=== PATIENT | female | born 1970 | race African-American/Black ===

== ENCOUNTER 2019-04-01 19:48 | Emergency (ER) | payer OTHER, MEDICAID ==
[~2019-04-01] VITALS: Ht 157.5 cm; Wt 95.3 kg
[2019-04-01 21:53] LABS: BILIRUBIN,URINE NEGATIVE (NEG); CLARITY,URINE CLEAR; COLOR,URINE YELLOW; NITRITE,URINE NEGATIVE (NEG); PROTEIN,URINE NEGATIVE (NEG-TRACE)
[2019-04-01 21:54] LABS: BASO % 0 % (0-3); EOS # 0.2 x10^3/uL (0.0-0.7); EOS % 2 % (0-3); HEMATOCRIT 36.3 % (36.0-47.0); LYMPH # 3.3 x10^3/uL (1.0-4.8); LYMPH % 51 % (24-48); MEAN CORPUSCULAR HEMOGLOBIN 29 pg (25-35); MEAN CORPUSCULAR HGB CONC 33 g/dL (31-37); MEAN CORPUSCULAR VOLUME 86 fL (79-100); MONO # 0.5 x10^3/uL (0.0-1.1); MONO % 7 % (0-9); NEUT # 2.6 x10^3/uL (1.8-7.7); NEUT % 40 % (31-73); PLATELET COUNT 275 x10^3/uL (140-400); RED BLOOD COUNT 4.21 x10^6/uL (3.50-5.40); RED CELL DISTRIBUTION WIDTH 15.7 % (11.5-14.5); WHITE BLOOD COUNT 6.5 x10^3/uL (4.0-11.0)
[2019-04-01 22:01] LABS: CALCIUM 9.2 mg/dL (8.5-10.1); CREATININE 0.8 mg/dL (0.6-1.0); GFR 92.6; POTASSIUM 3.3 mmol/L (3.5-5.1)
[2019-04-01 22:02] LABS: BACTERIA,URINE MANY /HPF (0-FEW); RBC,URINE 0 /HPF (0-2); SQUAMOUS EPITHELIAL CELL,UR MANY /LPF
[2019-04-01 22:06] LABS: ALBUMIN 3.5 g/dL (3.4-5.0); ALBUMIN/GLOBULIN RATIO 0.8 (1.0-1.7); TOTAL BILIRUBIN 0.5 mg/dL (0.2-1.0); TOTAL PROTEIN 7.8 g/dL (6.4-8.2)
--- NOTE | 2019-04-01 23:12 | PHYS DOC ---
Past Medical History Past Medical History: Other Additional Past Medical Histor: HEAD TUMOR AT AGE 7, CHEMO AND RADIATION.LEFT EYE BLINDNESS Past Surgical History: Other Additional Past Surgical Histo: HEAD SHUNT Alcohol Use: None Drug Use: None Adult General Chief Complaint Chief Complaint: FLANK PAIN HPI HPI 49-year-old female presents to the emergency department with complaints of right flank pain, right upper quadrant pain. Patient states is been ongoing times one month. She denies any fever however describes nausea at times. He makes her symptoms worse, nothing makes her symptoms better. She states she is not fall with her primary care physician for his pain nor is she taking any [id number] medications. Review of Systems Review of Systems Constitutional: Denies fever or chills [] Eyes: Denies change in visual acuity, redness, or eye pain [] HENT: Denies nasal congestion or sore throat [] Respiratory: Denies cough or shortness of breath [] Cardiovascular: No additional information not addressed in HPI [] GI: Denies abdominal pain, + nausea, no vomiting, bloody stools or diarrhea [] : Denies dysuria or hematuria [] Musculoskeletal: RUQ/R flank pain Integument: Denies rash or skin lesions [] Neurologic: Denies headache, focal weakness or sensory changes [] Endocrine: Denies polyuria or polydipsia [] All other systems were reviewed and found to be within normal limits, except as documented in this note. Current Medications Current Medications Current Medications Medications (Trade) Dose Ordered Sig/Aneta Start Time Stop Time Status Last Admin Dose Admin Ketorolac Tromethamine (Toradol Im) 60 mg 1X ONCE 04/01/19 23:15 04/01/19 23:16 DC 04/01/19 23:47 60 MG Allergies Allergies Allergies Coded Allergies Type Severity Reaction Last Updated Verified No Known Drug Allergies 04/23/15 No Physical Exam Physical Exam Constitutional: Well developed, well nourished, no acute distress, non-toxic appearance. [] HENT: Normocephalic, atraumatic, bilateral external ears normal, oropharynx moist, no oral exudates, nose normal. [] Eyes: PERRLA, EOMI, conjunctiva normal, no discharge. [] Cardiovascular:Heart rate regular rhythm, no murmur [] Lungs & Thorax: Bilateral breath sounds clear to auscultation [] Abdomen: Bowel sounds normal, soft, RUQ pain, no masses, no pulsatile masses. [] Skin: Warm, dry, no erythema, no rash. [] Back: right CVA tenderness Extremities: No tenderness, no edema. [] Neurologic: Alert and oriented X 3, no focal deficits noted. [] Psychologic: Affect normal, judgement normal, mood normal. [] Current Patient Data Vital Signs Vital Signs Date Time Temp Pulse Resp B/P (MAP) Pulse Ox O2 Delivery O2 Flow Rate FiO2 04/01/19 21:25 97.9 78 20 111/67 (82) 96 Room Air 97.9 Lab Values Laboratory Tests Test 04/01/19 21:40 04/01/19 21:47 White Blood Count 6.5 x10^3/uL (4.0-11.0) Red Blood Count 4.21 x10^6/uL (3.50-5.40) Hemoglobin 12.0 g/dL (12.0-15.5) Hematocrit 36.3 % (36.0-47.0) Mean Corpuscular Volume 86 fL (79-100) Mean Corpuscular Hemoglobin 29 pg (25-35) Mean Corpuscular Hemoglobin Concent 33 g/dL (31-37) Red Cell Distribution Width 15.7 % (11.5-14.5) H Platelet Count 275 x10^3/uL (140-400) Neutrophils (%) (Auto) 40 % (31-73) Lymphocytes (%) (Auto) 51 % (24-48) H Monocytes (%) (Auto) 7 % (0-9) Eosinophils (%) (Auto) 2 % (0-3) Basophils (%) (Auto) 0 % (0-3) Neutrophils # (Auto) 2.6 x10^3/uL (1.8-7.7) Lymphocytes # (Auto) 3.3 x10^3/uL (1.0-4.8) Monocytes # (Auto) 0.5 x10^3/uL (0.0-1.1) Eosinophils # (Auto) 0.2 x10^3/uL (0.0-0.7) Basophils # (Auto) 0.0 x10^3/uL (0.0-0.2) Urine Collection Type Void Urine Color Yellow Urine Clarity Clear Urine pH 6.0 Urine Specific [place] >=1.030 Urine Protein Negative mg/dL (NEG-TRACE) Urine Glucose (UA) Negative mg/dL (NEG) Urine Ketones (Stick) Negative mg/dL (NEG) Urine Blood Negative (NEG) Urine Nitrite Negative (NEG) Urine Bilirubin Negative (NEG) Urine Urobilinogen Dipstick 1.0 mg/dL (0.2 mg/dL) Urine Leukocyte Esterase Negative (NEG) Urine RBC 0 /HPF (0-2) Urine WBC 1-4 /HPF (0-4) Urine Squamous Epithelial Cells Many /LPF Urine Bacteria Many /HPF (0-FEW) Urine Mucus Marked /LPF Sodium Level 143 mmol/L (136-145) Potassium Level 3.3 mmol/L (3.5-5.1) L Chloride Level 103 mmol/L (98-107) Carbon Dioxide Level 31 mmol/L (21-32) Anion Gap 9 (6-14) Blood Urea Nitrogen 8 mg/dL (7-20) Creatinine 0.8 mg/dL (0.6-1.0) Estimated GFR (Cockcroft-Gault) 92.6 BUN/Creatinine Ratio 10 (6-20) Glucose Level 87 mg/dL (70-99) Calcium Level 9.2 mg/dL (8.5-10.1) Total Bilirubin 0.5 mg/dL (0.2-1.0) Aspartate Amino Transferase (AST) 12 U/L (15-37) L Alanine Aminotransferase (ALT) 13 U/L (14-59) L Alkaline Phosphatase 97 U/L (46-116) Total Protein 7.8 g/dL (6.4-8.2) Albumin 3.5 g/dL (3.4-5.0) Albumin/Globulin Ratio 0.8 (1.0-1.7) L Lipase 202 U/L (73-393) POC Urine HCG, Qualitative Hcg negative (Negative) Laboratory Tests 04/01/19 21:40 Laboratory Tests 04/01/19 21:40 EKG EKG [] Radiology/Procedures Radiology/Procedures [] Course & Med Decision Making Course & Med Decision Making Pertinent Labs and Imaging studies reviewed. (See chart for details) []49-year-old female presents to the emergency department with complaints of right flank pain, right upper quadrant pain. Patient states is been ongoing times one month. She denies any fever however describes nausea at times. He makes her symptoms worse, nothing makes her symptoms better. She states she is not fall with her primary care physician for his pain nor is she taking any [id number] medications. Labs reviewed, white blood cell count normal, urinalysis negative, metabolic profile unremarkable. Ultrasound of the abdomen reveals evidence of cysts appreciated in the liver, no evidence of acute cholecystitis or cholelithiasis appreciated. Discussed findings with patient and family at bedside recommend follow-up primary care physician as an outpatient\ Return precautions provided Recommend follow up with PCP Myranda Disclaimer [employer] Disclaimer This electronic medical record was generated, in whole or in part, using a voice recognition dictation system. Departure Departure Impression: Primary Impression: Right flank pain Disposition: HOME, SELF-CARE Condition: STABLE Referrals: DAVE FERREIRA MD (PCP) Patient Instructions: Flank Pain, [id number] Additional Instructions: Recommend follow up with PCP 3 - 5 days Return to the ER with worsening symptoms, intractable pain, fever, altered mental status Tylenol/Motrin as needed for pain RAYMOND HEAD MD Apr 01, 2019 23:12
[2019-04-01] MEDS ORDERED: KETOROLAC 60 MG/2 ML VIAL. IM ONE (23:15)
--- NOTE | 2019-04-02 00:18 | RAD ---
Examination: ABDOMEN LTD History: Right upper quadrant pain Comparison/Correlation: None Findings: Limited right upper quadrant ultrasound was performed. Hepatic echotexture is within normal limits. There is a complex cystic structure within left hepatic lobe measuring 1.6 cm diameter. A few additional smaller cysts are also present. Portal venous flow is evident. No biliary dilatation. Common bile duct diameter is unremarkable. Gallbladder is mostly contracted as the patient was not nothing by mouth prior to exam. No calculi suspected in the gallbladder. Right kidney measures up to 10.1 cm longitudinal. No right hydronephrosis. Inferior vena cava is unremarkable. No right upper quadrant ascites. Proximal pancreas is normal. Distal pancreas is obscured by bowel gas. Impression: Cysts appear to be present involving the liver. Gallbladder is contracted limiting assessment. No cholelithiasis suspected. Electronically signed by: Destin Belle MD (04/02/2019 12:15 AM) [id number]
[2019-04-02 00:56] VITALS: BP 140/81
== END 2019-04-02 00:59 | disposition home or self-care (01) ==
LOC: ER 19:48
DX: R10.11 Right upper quadrant pain (principal); R11.0 Nausea
CPT/HCPCS: 36415; 76705; 80053; 81001; 81025; 83690; 85025; 87086; 96372; 99285; J1885